=== PATIENT | female | born 1930 | race Caucasian/White ===

== ENCOUNTER 2016-09-04 17:32 | Inpatient (IN) | payer OTHER ==
[~2016-09-04] VITALS: Ht 157.5 cm; Wt 68.0 kg
--- NOTE | ~2016-09-04 | EKG ---
[place] [address] [facility] [place] [address] ELECTROCARDIOGRAM REPORT Name: KAI MARIE Room #: 429-P ADM IN M.R.#: [id number] Admission: 09/04/16 Attend Phys: Keon Kennedy Discharge: Date of : 30 Report #: [id number] THIS REPORT FOR: //name// [facility] ED Test Date: 2016-09-04 Test Time: 17:38:08 Pat Name: KAI MRAIE Department: Room: 429 Gender: F Senior Planner: CHARIS : 1930 Requested By: Reji Snow Order Number: [id number] MD: Kingsley Long Measurements Intervals [place] Rate: 80 P: 14 RI: 179 QRS: -7 QRSD: 96 T: 35 QT: 411 QTc: 475 Interpretive Statements Sinus rhythm Atrial premature complex Abnormal R-wave progression, early transition LVH with secondary repolarization abnormality Compared to ECG 02/20/2014 10:08:02 Atrial premature complex(es) now present Left ventricular hypertrophy now present Electronically Signed On 09-05-2016 8:44:41 CDT by Kingsley Long [email or web address] <ELECTRONICALLY SIGNED> By: Kingsley Long MD, [facility] 09/05/16 0844 1738 1738 Kingsley Long MD, [facility] /EPI
--- NOTE | ~2016-09-04 | 2DMMODE ---
[facility] [address] [place] [address] 2 D/M-MODE ECHOCARDIOGRAM Name: KAI MARIE Room #: 429-P ADM IN M.R.#: [id number] Admission: 09/04/16 Attend Phys: Keon Shine Discharge: Date of : 30 Date of Service: 09/05/16 1403 Report #: [id number] THIS REPORT FOR: //name// APPROVED REPORT Study performed: 09/05/2016 11:45:51 EXAM: Comprehensive 2D, Doppler, and color-flow Echocardiogram Patient Location: Echo lab Room #: 429 Status: routine Other Information Study Quality: Technically Limited Indications Syncope Hx HTN 2D Dimensions RVDd: 32.54 mm LVEF(%): 59.93 (>50%) IVSd: 12.66 (7-11mm) LVOT Diam: 18.82 (18-24mm) LVDd: 36.42 mm PWd: 12.95 (7-11mm) Ascending Ao: 34.26 (22-36mm) LVDs: 25.05 (25-40mm) Aortic Root: 27.86 mm Jerome's LVEF: 59.93 % Volumes Left Atrial Volume (Systole) Single Plane 4CH: 33.13 mL Single Plane 2CH: 48.39 mL LA ESV Index: 31.00 mL/m2 Aortic Valve AoV Peak Jordon.: 1.78 m/s AO Peak Gr.: 14.00 mmHg LVOT Max P.72 mmHg LVOT Max V: 0.96 m/s JAVON Vmax: 1.51 cm2 Mitral Valve E/A Ratio: 0.7 MV Decel. Time: 311.96 ms MV E Max Jordon.: 1.04 m/s MV A Jordon.: 1.49 m/s MV PHT: 90.47 ms [facility] [place] [address] 2 D/M-MODE ECHOCARDIOGRAM Name: KAI MARIE Room #: 429-P [facility] IN M.R.#: [id number] Admission: 09/04/16 Attend Phys: Keon Shine Discharge: Date of : 30 Date of Service: 09/05/16 1403 Report #: [id number] IVRT: 80.74 ms Pulmonary Valve PV Peak Jordon.: 0.96 m/s PV Peak Gr.: 3.72 mmHg Tricuspid Valve TR Peak Jordon.: 2.74 m/s RAP Estimate: 5.00 mmHg TR Peak Gr.: 29.97 mmHg PA Pressure: 35.00 mmHg Left Ventricle The left ventricle is normal size. There is normal LV segmental wall motion. Mild concentric left ventricular hypertrophy. The left ventricular systolic function is normal. The left ventricular ejection fraction is within the normal range. LVEF is 55-60%. Grade I - abnormal relaxation pattern. Right Ventricle The right ventricle is normal size. The right ventricular systolic function is normal. Atria The left atrium size is normal. The right atrium size is normal. Aortic Valve Aortic valve is calcified, trileaflet Trace aortic regurgitation. There is no aortic valvular stenosis. Mitral Valve Moderate mitral annular calcification Trace mitral regurgitation. No evidence of mitral valve stenosis. Tricuspid Valve The tricuspid valve is normal in structure. There is mild tricuspid regurgitation. The right atrial pressure is estimated at 5 mmHg. There is mild pulmonary hypertension with an estimated PAP of 35 mmHg. Pulmonic Valve The pulmonary valve is normal in structure. Trace pulmonic regurgitation. Great Vessels The aortic root is normal in size. The ascending aorta is normal in size. IVC is normal in size and collapses >50% with [facility] [address] [place] [address] 2 D/M-MODE ECHOCARDIOGRAM Name: KAI MARIE Room #: 429-P [facility] IN M.R.#: [id number] Admission: 09/04/16 Attend Phys: Keon Shine Discharge: Date of : 30 Date of Service: 09/05/16 1403 Report #: [id number] inspiration. Pericardium There is no pericardial effusion. <Conclusion> The left ventricular systolic function is normal. There is normal LV segmental wall motion. LVEF is 55-60%. Grade I - abnormal relaxation pattern. Aortic valve is calcified, trileaflet, no stenosis. Trace aortic regurgitation. Moderate mitral annular calcification. No mitral regurgitation. Estimated pulmonary artery pressure of 35 mmHg. There is no pericardial effusion. <ELECTRONICALLY SIGNED> By: Kingsley Long MD, [facility] 09/05/16 1403 140 140 Kingsley Long MD, FAC /INF
[~2016-09-04 17:32] MED LIST: AMBIEN 10 MG TA10 MG PO; APAP500 PO; ARICEPT 5 MG TAB5 MG PO; ASPIRIN325; ASPIRIN81 M2 PO; BIOTIN2500 MCG PO; CARISOPRODOL 3350 M1 PO; CELEXA10 MG; CELEXA10 MG PO; CENTRUM SILVER1 EAC4 PO; COLACE100 MG PO; DIOVAN 80 MG TA80 M1 PO; DIOVAN320 MG PO; DONEPEZIL HCL5 MG PO; DULCOLAX5 MG PO; ENOXAPARIN40 MG/0.1 SUBQ; FISH OIL 1,0001 EAC5 PO; FLEXERIL PO; FLONASE 0.05%50 MCG NASAL; FOSAMAX 70 MG T70 M1 PO; FOSAMAX 70 MG T70 MG; IBUPROFEN 200200 M1 PO; IBUPROFEN 600600 M1 PO; LIDODERM 5%1 PATC1 TRANSDERM; LOPERAMIDE 2 MG2 M1 PO; MIRALAX255 GM PO; NORCO 5-325 TA1 EACH PO; ONDANSETRON HCL4 M2 PO; PREDNISONE 5 MG5 M1 PO; PROBIOTIC1 EAC1 PO; RICOLA1 EAC1 PO; SENNA PO; TUMS PO; TYLENOL EXTRA500 MG PO; UBIQUINOL100 MG PO; VITAMIN E400 UNIT PO; WELLBUTRIN 75 M75 M1 PO; XALATAN2.5 ML OPHTHALMIC; ZETIA10 MG PO; ZYRTEC10 MG PO
[2016-09-04] MEDS ORDERED: UBIQUINOL100 MG PO (17:52)
[2016-09-04] MEDS ORDERED: PROBIOTIC1 EAC1 PO (17:53)
[2016-09-04 17:57] LABS: URINE BILIRUBIN NEGATIVE (Negative); URINE BLOOD 1+ (Negative); URINE COLOR YELLOW; URINE GLUCOSE-RANDOM* NEGATIVE (Negative); URINE KETONES TRACE (Negative); URINE NITRITE NEGATIVE (Negative); URINE PROTEIN (DIPSTICK) 1+ (Negative); URINE SPECIFIC GRAVITY 1.025 (1.003-1.035)
[2016-09-04 18:10] LABS: BACTERIA 1-9 Few /HPF (None Seen); CASTS None Seen /LPF (None Seen); SQUAMOUS 0-3 Few /LPF (0-3); URINE RBC 3-10 Few /HPF (0-2); URINE WBC 0-5 Rare /HPF (0-5)
[2016-09-04 18:11] LABS: CRYSTALS None Seen /LPF (None Seen)
[2016-09-04 18:29] LABS: HEMATOCRIT 39.5 % (37.0-47.0); HEMOGLOBIN 13.3 gm/dL (12.0-15.0); MCH 32.4 pg (26.0-34.0); MCHC 33.7 g/dL (28.0-37.0); MCV 96.2 fL (80.0-100.0); PLATELET COUNT 206 thou/uL (150-400); RBC 4.11 mil/uL (4.20-5.00); RDW 13.3 % (10.5-14.5); WBC 9.8 thou/uL (4.0-11.0)
[2016-09-04 18:32] LABS: MANUAL DIFF YES
[2016-09-04 18:38] LABS: ANION GAP 9 mmol/L (7-16); BUN 19 mg/dL (7-18); CALCIUM 8.6 mg/dL (8.5-10.1); CHLORIDE 101 mmol/L (98-107); CO2 24 mmol/L (21-32); CREATININE 1.1 mg/dL (0.6-1.0); GLUCOSE 112 mg/dL (74-106); POTASSIUM 3.8 mmol/L (3.5-5.1); SODIUM 134 mmol/L (136-145)
[2016-09-04 18:50] LABS: ALBUMIN 3.4 g/dL (3.4-5.0); ALKALINE PHOSPHATASE 72 U/L (46-116); NT-PRO BRAIN NAT PEPTIDE 983 pg/mL (<300); SGOT 21 U/L (15-37); SGPT 18 U/L (30-65); TOTAL BILIRUBIN 0.7 mg/dL (<0.1-1.0); TROPONIN-I < 0.04 ng/mL (<0.04-0.07)
[2016-09-04 19:19] LABS: ABSOLUTE NEUTROPHILS 7.9 thou/uL (1.4-8.2); TOTAL CELL COUNT 100
[2016-09-05 04:00] VITALS: BP 165/73
[2016-09-05 06:16] LABS: HEMATOCRIT 37.2 % (37.0-47.0); HEMOGLOBIN 12.6 gm/dL (12.0-15.0); MCV 94.2 fL (80.0-100.0); RBC 3.95 mil/uL (4.20-5.00); WBC 9.3 thou/uL (4.0-11.0)
[2016-09-05 06:42] LABS: ANION GAP 8 mmol/L (7-16); BUN 18 mg/dL (7-18); CALCIUM 7.8 mg/dL (8.5-10.1); CHLORIDE 98 mmol/L (98-107); CO2 26 mmol/L (21-32); CREATININE 1.1 mg/dL (0.6-1.0); GLUCOSE 100 mg/dL (74-106); POTASSIUM 3.6 mmol/L (3.5-5.1); SODIUM 132 mmol/L (136-145); TROPONIN-I < 0.04 ng/mL (<0.04-0.07)
[2016-09-05 08:15] VITALS: BP 121/69
[2016-09-05 08:20] VITALS: BP 141/76
[2016-09-05 08:25] VITALS: BP 145/72
[2016-09-05 16:00] VITALS: BP 142/71
[2016-09-05 21:15] VITALS: BP 125/63
[2016-09-06] VITALS (7 sets, daily range): BP systolic 96–145; BP diastolic 48–78
[2016-09-06 05:19] LABS: HEMATOCRIT 37.9 % (37.0-47.0); HEMOGLOBIN 12.7 gm/dL (12.0-15.0); MCH 32.3 pg (26.0-34.0); MCHC 33.5 g/dL (28.0-37.0); MCV 96.3 fL (80.0-100.0); PLATELET COUNT 195 thou/uL (150-400); RBC 3.93 mil/uL (4.20-5.00); RDW 13.4 % (10.5-14.5); WBC 6.6 thou/uL (4.0-11.0)
[2016-09-06 05:21] LABS: MANUAL DIFF YES
[2016-09-06 05:26] LABS: CALCIUM 8.3 mg/dL (8.5-10.1); CREATININE 1.1 mg/dL (0.6-1.0); POTASSIUM 3.3 mmol/L (3.5-5.1)
[2016-09-06 08:27] LABS: ABSOLUTE NEUTROPHILS 4.2 thou/uL (1.4-8.2); ANISOCYTOSIS SLIGHT; POIKILOCYTOSIS SLIGHT; TOTAL CELL COUNT 100
[2016-09-07 04:08] VITALS: BP 172/58
[2016-09-07 06:18] LABS: ABSOLUTE NEUTROPHILS 4.5 thou/uL (1.4-8.2); BASOPHILS 0.6 % (0.0-2.0); EOSINOPHILS 1.4 % (0.0-3.0); HEMOGLOBIN 11.8 gm/dL (12.0-15.0); LYMPHOCYTES 15.5 % (24.0-44.0); MCH 32.5 pg (26.0-34.0); MCHC 33.8 g/dL (28.0-37.0); MCV 96.1 fL (80.0-100.0); MONOCYTES 11.3 % (1.0-8.0); PLATELET COUNT 206 thou/uL (150-400); POLYS 71.2 % (36.0-66.0); RBC 3.64 mil/uL (4.20-5.00); RDW 13.1 % (10.5-14.5); WBC 6.3 thou/uL (4.0-11.0)
[2016-09-07 06:21] LABS: MANUAL DIFF NO
[2016-09-07 06:26] LABS: CALCIUM 8.5 mg/dL (8.5-10.1); CREATININE 0.9 mg/dL (0.6-1.0); POTASSIUM 3.8 mmol/L (3.5-5.1)
[2016-09-07 09:28] VITALS: BP 159/76
[2016-09-07 15:29] VITALS: BP 186/92
[2016-09-07 20:58] VITALS: BP 162/66
[2016-09-08 05:03] VITALS: BP 183/61
[2016-09-08] MEDS ORDERED: COZAAR 25 MG TA25 M1 PO (07:10)
[2016-09-08 07:29] VITALS: BP 157/80
[2016-09-08 14:56] VITALS: BP 156/70
== END 2016-09-08 15:35 | DRG 682 ==
LOC: ER 17:32 → 4E 20:00 → EROBS 20:00 → 4E 21:03
PROVIDERS: Family Medicine; Nurse Practitioner Family; Physician Assistant
DX: N17.9 Acute kidney failure, unspecified (principal); I50.31 Acute diastolic (congestive) heart failure; N39.0 Urinary tract infection, site not specified; E86.0 Dehydration; M35.3 Polymyalgia rheumatica; F32.9 Major depressive disorder, single episode, unspecified; E78.5 Hyperlipidemia, unspecified; F03.90 Unspecified dementia, unspecified severity, without behavioral disturbance, psychotic disturbance, mood disturbance, and anxiety; I11.0 Hypertensive heart disease with heart failure; K59.00 Constipation, unspecified; Z85.038 Personal history of other malignant neoplasm of large intestine; Z88.8 Allergy status to other drugs, medicaments and biological substances
CPT/HCPCS: 10183